=== PATIENT | male | born 1995 | race Caucasian/White ===

== ENCOUNTER 2019-07-17 10:59 | Emergency (ER) | payer SELFPAY ==
[2019-07-17] VITALS (21 sets, daily range): BP systolic 118–136; BP diastolic 52–72; PULSE 67–100; RESP 14–24; TEMP 37.1–37.6; O2SAT 97–100
--- NOTE | 2019-07-17 11:18 | ED.GENADUL_ITS ---
Discharge Plan Disposition Patient Disposition: HOME Condition: Good Discharge Details Chief Complaint: SOB Clinical Impression: Acute sore throat, Elevated LFTs Primary Care Provider: None,None ED Provider: Saira Rutherford Home Meds and New Rx's Prescriptions: New Lidocaine Viscous 2 % solution 1 applic MM TID PRN (Reason: pain) Qty: 100 RF: 0 Continued magnesium oxide [MagOx] 400 MG tablet 400 mg PO BID Qty: 60 RF: 5 Discharge Instructions Instructions: Pharyngitis (ED) Additional Instructions: Encourage hydration. You may use ibuprofen as needed for discomfort. Please stop drinking. Your uvula is slightly enlarged and this may be associated with your recent alcohol intoxication and may be causing you to have this sensation and discomfort in your throat. ENT does not believe that you have any life- threatening or emergent etiology in your throat. I would like you to follow-up with primary care next week for reevaluation and recheck of your elevated liver enzymes. We will contact you with any abnormalities in your pending labs. If you develop increased pain, inability stay hydrated, fever/chills or other new/worsening symptom please seek care urgently once again. Our ostomy care nurse will contact you regarding establishing primary care, I have asked that you be seen in the next week for reevaluation. Discharge Data Discharge Date/Time-TO BE ENTERED AT DEPARTURE: 07/17/19 15:48 Medical Decision Making Patient is a pleasant 24-year-old male presenting today, brought in via EMS, with chief complaint of difficulty breathing. He reports for the past 1 week he has had symptoms of foreign body in his throat. Reports that this is been causing him to have a sore throat and feeling he is having difficulty catching his breath. He denies any chest pain. States that he is also had a cold and endorses some congestion and cough. Denies sudden onset, feels that this is been more progressive. Has not had sensation like this historically. No masses noted by patient. No issues with his thyroid that he is aware of. Patient states that he has had a diminished appetite secondary to this feeling but that yesterday he was able to eat beef jerky and pizza bites without difficulty. Patient reports that he occasionally smokes cigarettes. Denies any use of vaporizers. Denies other illicit drug use. On exam, patient is resting comfortably. Posterior oropharynx is erythematous but no swelling or exudate. Rapid strep testing was performed by myself. No uvular swelling, tonsillar's are equal bilaterally. No palpable mass. Thyroid is normal. Lung sounds are clear. Plan for rapid strep testing. As he reports diminished p.o. intake, will hydrate patient and check baseline labs. Will check a chest x-ray as he has been endorsing some shortness of breath. If rapid strep testing is negative, plan to perform CT of the patient's neck. CXR reviewed by raddiologist: The heart is not enlarged. The lungs are clear and well expanded. No pleural effusion seen. Mediastinal contours appear intact. IMPRESSION: Normal chest Rapid strep negative, will move forward with CT. Spoke with radiologist regarding CT. He advised that between the tonsils and eustachian tubes he has small gas collections in the midline. Concerned for possible FB or instrumentation pushed into this area. No fluid to suggest abscess. Advised that this is too midline for eustachian tube pathology. Pushed images to [facility] [place] and will request consultation with ENT. ENT physician reviewed images and advised that they do not see acute abnormality. Do not see any evidence of inflammation. She advised that the air pockets is most consistent with mucus in the area and no acute pathology. Discussed these findings with the patient. Patient's labs are reviewed, no leukocytosis. Potassium slightly low at 3.2. Plan to replenish this orally here. Anion gap of 18. Patient is hydrating orally and has received IV hydration. Both the patient's AST and ALT are elevated. I am concerned for possible viral etiology causing a spike as well sore throat. He denies any fatigue or other constitutional symptoms suggestive of mononucleosis. No known exposure to ticks. We will send a hepatitis panel although the patient is low risk, no IV drug use, no tattoos, no concerning sexual history reported. No history testing for strep is also been sent. Patient given strict return precautions. I would like him to be evaluated by primary care within the next week. As he does not have 1, of asked her care clinic to help arrange for appointment. He was given strict return precautions. All of his questions and concerns were addressed and he is in agreement this plan. HPI General Mode of arrival: EMS . Date/Time Provider Initiated Documentation: 07/17/19 11:18 . Limitations to Documentation: no limitations . Information obtained by: patient, EMS and RN notes reviewed . History of Present Illness 24 year old M presents to the emergency department with the chief complaint of sore throat, SOB, FB sensation, described as moderate, with intensity rated at 5. Quality is described as aching, and is localized to the neck (indicates anterior neck as area of discomfort and sensation). Patient reports no radiation. Patient started experiencing this week(s) (1) and it has been constant (SOB increased today). No relieving factors improve symptom(s), No exacerbating factors reported . Patient notes loss of appetite (associates with sore throat) and shortness of breath (feels that throat is tight); denies chest pain, cough, diaphoresis, fever/chills, headaches, nausea/vomiting, rash and weakness. Patient did receive the following treatments prior to arrival, none Related Data Home Medications Medication Instructions Recorded Confirmed magnesium oxide [MagOx] 400 mg PO BID #60 tablet 03/16/17 07/17/19 lidocaine HCl [Lidocaine Viscous] 1 applic MM TID PRN #100 ml 07/17/19 Previous Rx's Medication Instructions Recorded magnesium oxide [MagOx] 400 mg PO BID #60 tablet 03/16/17 lidocaine HCl [Lidocaine Viscous] 1 applic MM TID PRN #100 ml 07/17/19 Allergies Allergy/AdvReac Type Severity Reaction Status Date / Time No Known Allergies Allergy Unverified 07/17/19 11:10 General Stated Complaint: SOB DELMAR: 3 Review of Systems Constitutional Constitutional: Reports as per HPI, Denies chills, Denies fatigue, Denies fever(s), Denies headache(s), Denies malaise and Reports poor appetite Eyes Eyes: Reports as per HPI, Denies eye discharge and Denies irritation ENT Ears, Nose, Mouth, and Throat: Reports as per HPI and Denies headache(s) Cardiovascular Cardiovascular: Reports as per HPI, Denies chest pain, Reports dyspnea (secondary to throat being tight) and Denies dyspnea on exertion Respiratory Respiratory: Reports as per HPI, Denies change in phlegm color, Denies chest congestion, Denies cough, Denies pain on inspiration, Denies pain with cough, Reports dyspnea (secondary to throat being tight) and Denies dyspnea on exertion Gastrointestinal Gastrointestinal: Reports as per HPI, Denies abdominal pain, Denies change in bowel habits, Denies nausea and Denies vomiting Integumentary/Breasts Skin/Breast: Reports as per HPI and Denies rash Neurologic Neurologic: Reports as per HPI and Denies headache(s) Endocrine Endocrine: Denies fatigue [facility] Social History Smoking/Tobacco Use Status: Former Tobacco Use Alcohol Intake: current Alcohol Intake frequency: a few times a week Drug use: Occasionally Substance use type: marijuana Details: PAtient states he smoked mrijuana last night. Do you feel safe at home: Yes Do you feel safe in your relationship?: Yes Exam Const General: cooperative, healthy appearing, comfortable, no acute distress, well developed and well groomed Nutritional Appearance: average body habitus and well nourished Orientation: alert and awake HENMT Head: normal to inspection, normocephalic and atraumatic Ears: hearing grossly normal bilaterally, external ears normal and TM's normal bilaterally General nose exam: external nose normal and nares normal Face and sinus: normal facial exam, sinuses nontender and face symmetric Mouth: oral mucosae normal, lip normal, tongue normal, oropharynx normal and moist mucous membranes Teeth and gingiva: dentition normal Throat: posterior oropharynx abnormal (mild erythema), tonsils normal and uvula midline Eyes General: appearance normal, both eyes and all related structures Neck Neck: normal visual inspection, full ROM, no lymphadenopathy, no meningeal signs, trachea midline, supple, no anterior neck swelling, no midline deformity, nontender, no tracheal deviation, no JVD and No submandibular swelling Thyroid: thyroid normal Carotids: normal carotid upstroke Lymphatic: no lymphadenopathy noted Resp Effort & Inspection: normal respiratory effort, able to speak in complete sentences and no respiratory distress Auscultation: clear to auscultation bilaterally, no rales, no rhonchi and no w heezes Cardio Rate: regular rate Rhythm: regular rhythm Heart Sounds: S1 normal and S2 normal GI Inspection: normal to inspection and non-distended Palpation: soft, not firm, no guarding and nontender Skin General skin exam: no rashes or lesions noted Neuro General: alert and awake Cognition: normal cognition Speech: speech normal Gait: normal gait Psych Appearance: grossly normal and well kempt Mental Status: mental status grossly normal Speech and Movement: speech and movement normal Course Vital Signs Vital signs: Vital Signs Temperature 37.1 C 07/17/19 11:06 Pulse 100 H 07/17/19 11:06 Respiratory Rate 18 07/17/19 11:06 Blood Pressure 136/57 L 07/17/19 11:06 Pulse Oximetry 100 07/17/19 11:06 Temperature 37.1 C 07/17/19 11:06 Temperature Source Skin 07/17/19 11:06 Pulse 100 H 07/17/19 11:06 Respiratory Rate 18 07/17/19 11:06 Respiratory Effort 07/17/19 11:10 Respiratory Depth Deep 07/17/19 11:10 Respiratory Pattern Normal 07/17/19 11:10 Blood Pressure 136/57 L 07/17/19 11:06 Blood Pressure Position Sitting 07/17/19 11:06 Pulse Oximetry 100 07/17/19 11:06 Oxygen Delivery Method Room Air 07/17/19 11:06 Oxygen Flow Rate 0 07/17/19 11:06 Pain Level 5 07/17/19 11:06
--- NOTE | 2019-07-17 11:50 | DI.RAD_ITS ---
EXAM: XR CHEST 2V PA LATERAL XR CHEST 2V PA LATERAL CLINICAL HISTORY: SOB SOB TECHNIQUE: 2D digital imaging was performed. COMPARISON: CHEST 2 VIEWS PA,LAT from 07/17/2017 FINDINGS: The heart is not enlarged. The lungs are clear and well expanded. No pleural effusion seen. Mediastin al contours appear intact. IMPRESSION: Normal chest
[2019-07-17 11:55] LABS: Abs Immature Grans 0.03 k/cumm (0.0-0.09); Absolute Basophil Count 0.02 k/cumm (0.0-0.2); Absolute Lymphocyte Count 0.39 k/cumm (1.2-3.4); Absolute Monocyte Count 0.67 k/cumm (0.11-0.7); Absolute Neutrophil Count 4.77 k/cumm (1.2-6.7); Basophils % 0.3; HCT 40.7 % (40.0-50.0); HGB 14.8 g/dL (13.5-17.5); Immature Grans % 0.5; Lymphocytes % 6.6; Mean Corp. HGB Concentration 36.4 g/dL (32.0-36.0); Mean Corpuscular Hemoglobin 34.7 pg (27.0-33.0); Mean Corpuscular Volume 95.3 fL (80-95); Mean Platelet Volume 9.4 fL (8.0-11.0); Monocytes % 11.4; Neutrophils % 81.2; Platelet Count 176 x1000/uL (130-400); RBC 4.27 m/cumm (4.50-6.00); RBC Distribution Width 11.6 % (11.8-14.1); White Blood Cell Count 5.88 k/cumm (4.4-10.8)
[2019-07-17 12:36] LABS: ALT 113 U/L (16-63); AST 137 U/L (15-37); Albumin 3.7 g/dL (3.4-5.0); Alkaline Phosphatase 110 U/L (46-116); Anion Gap 18.4 mmol/L (3-11); BUN 4 mg/dL (7-18); Bilirubin, Total 0.7 mg/dL (0.2-1.0); CO2 21.6 mmol/L (21.0-32.0); CREATININE 0.65 mg/dL (0.70-1.30); Chloride 98 mmol/L (98-107); Glucose 98 mg/dL (74-106); Potassium 3.2 mmol/L (3.5-5.1); Sodium 138 mmol/L (136-145); TSH (W/Ref FT4) 2.52 uIU/mL (0.36-3.74); Total Protein 7.4 g/dL (6.4-8.2); Troponin I < 0.05 ng/Ml (<0.06)
[2019-07-17] MEDS: Omnipaque 350 MG/ML 100 ML BTL IJ (13:19)
--- NOTE | 2019-07-17 13:21 | DI.CT_ITS ---
EXAM: CT NECK W CLINICAL HISTORY: FB/fullness sensation TECHNIQUE: CT examination of the cervical region was performed with intravenous infusion of 100 cc o f Omnipaque 350. COMPARISON: No exams were available for comparison FINDINGS: Images obtained through the lung apices are unremarkable. Vascular structures appear intact. No sig nificant cervical adenopathy. Salivary glands are unremarkable in appearance. Laryngeal structures appear intact. Visualized portions of the brain appear normal. Orbital and temporal bone structures appear intact. Note is made of small quantity of gas in the soft tissues anterior to the clivus just above the C1 le cammie in the posterior nasopharynx. There is also some prominence of the posterior nasopharyngeal tiss ue. No fluid collection. No mass. IMPRESSION: The findings as described would raise the possibility of penetrating injury or abscess although no gr oss enhancement or fluid collection is seen. ENT consultation suggested with direct visualization of the posterior nasopharynx.
[2019-07-17] MEDS: Normal Saline 1,000 ML 1000 ML IV (13:46)
[2019-07-17] MEDS: Lidocaine 2% Viscous 15 ML CUP PO (15:04)
--- NOTE | 2019-07-17 18:59 | CMPROGNOTE_ITS ---
- If Service Date Differs Date of service: 07/17/19 Time of Service: 18:59 Care Management Progress Note CM coordinated transportation with [facility] from hospital to [place]. Patient not currently [facility] client so authorization was needed.
[2019-07-18 11:42] LABS: Hepatitis A Antibody IgM Negative (Negative); Hepatitis B Core Antibody Negative (Negative); Hepatitis B surface Ag Negative (Negative); Hepatitis C Ab w Rflx HCV PCR Negative (Negative)
== END 2019-07-17 15:48 | disposition home or self-care (01) ==
PROVIDERS: Emergency Provider Physician Assistant
DX: J02.9 Acute pharyngitis, unspecified (principal); R94.5 Abnormal results of liver function studies
CPT/HCPCS: 36415; 70491; 80053; 86704; 86709; 86803; 87340; 87880; 93005; 96360; 99285; 71046; 84443; 84484; 85025; 87081; 93010; 99284; J3490